=== PATIENT | female | born 1955 | race African-American/Black ===

== ENCOUNTER → 2019-04-25 | Day surgery (SDC) | payer OTHER ==
[~2019-04-25] MED LIST: IV RINGERS,LACTATED 1000ML 1,000 ML IV SCH; LIDOCAINE 2% PF 5 ML VIAL. ONE; PROPOFOL 40 ML IV ONE
[2019-04-25 12:08] VITALS: BP 136/71
--- NOTE | 2019-04-25 12:21 | PREOP HP ---
DATE OF SERVICE: 04/25/2019 REQUESTING PHYSICIAN: Carolyn Meek PRIMARY CARE PHYSICIAN: Carolyn Meek REASON FOR PROCEDURE: Colorectal cancer screening. HISTORY OF PRESENT ILLNESS: This is a 63-year-old female who presents for colorectal cancer screening. She has a family history of colon cancer in her daughter at age 32. She reports a daily bowel movement. She is scheduled for a hysterectomy due to uterine fibroids. PAST MEDICAL HISTORY: Uterine fibroids. FAMILY MEDICAL HISTORY: Significant for colon cancer in her daughter at age 32. SOCIAL HISTORY: No tobacco, alcohol or IV drug abuse. ALLERGIES: No known drug allergies. MEDICATIONS: None. REVIEW OF SYSTEMS: A 13-point review of systems was done and is positive as per HPI and otherwise negative. PHYSICAL EXAMINATION: VITAL SIGNS: She is afebrile and her vital signs are stable. GENERAL: She is a well-developed, well-nourished -[place] female, in no apparent distress. HEENT: Oropharynx is clear. CARDIOVASCULAR: S1, S2. LUNGS: Clear. ABDOMEN: Firm and distended. She reports this is secondary to uterine fibroids. She is nontender. EXTREMITIES: No edema. NEUROLOGIC: Awake, alert and oriented x3. ASSESSMENT AND PLAN: 1. Colorectal cancer screening. The risks and benefits including bleeding, perforation, non-diagnosis and sedation were explained and she has agreed to proceed. 2. Family history of colon cancer. Thank you for allowing me to participate in the care of this patient. CATRACHITA HAMILTON MD DR: VIRAL/blanca JOB#: [id number] / [id number]
--- NOTE | 2019-04-27 17:06 | PATHOLOGY ---
[facility] Accession Number: [id number] . 01 Material submitted: . PART A: colon - TRANSVERSE AND DESCENDING COLON POLYPS. Modifiers: transverse, descending PART B: colon - TRANSVERSE COLON POLYPS BIOPSY. Modifiers: transverse . 01 Clinical history: . Screening . 02 Diagnosis: A. Colon biopsies, transverse and descending colon polyps: - Tubular adenomas (3). . B. Colon biopsies, transverse colon polyps: - Tubular adenomas. . (JPM:lizandro; 04/27/2019) QMS 04/27/2019 0852 Local . 02 Comment: There is no high grade dysplasia or evidence of malignancy. . 02 Electronically signed: . Dakota Petty MD, Pathologist NPI- [id number] . 01 Gross description: . A. The specimen is received in formalin, labeled "Annelise Dekalb, transverse and descending colon polyps, hot snare polypectomy". Received are three segments of polypoid light brown soft tissue ranging in size from 0.9 x 0.8 x 0.5 to 1.2 x 0.9 x 0.8 cm in greatest dimensions. The surgical margins are inked. The smaller two segments are bisected and entirely submitted in cassette A1. The larger segment is trisected and entirely submitted in cassette A2. Due to the nature of the larger segment, fragmentation has occurred upon sectioning. . B. The specimen is received in formalin, labeled "Annelise Dekalb, transverse colon polyps biopsy". Received are multiple (greater than 10) segments of pale magallon soft tissue ranging in size from 0.2 to 0.4 cm in maximum dimensions. The specimen is submitted entirely in cassette B1. (CAA; 04/26/2019) QAC/QAC 04/26/2019 1139 Local . 02 Pathologist provided ICD-10: D12.3 . 02 CPT . 594311, [id number] Specimen Comment: A courtesy copy of this report has been sent to [phone], [phone] Specimen Comment: [id number] Specimen Comment: Report sent to / DR ORDONEZ Specimen Comment: A duplicate report has been generated due to demographic updates. Performed at: 01 [facility] [address] [facility] [address], [place] [id number] MD Behzad Cheema MD Phone: [phone] Performed at: 02 [facility] [address] [place], [place] [id number] MD Dakota Petty MD Phone: [phone]
== END ==
LOC: ENDOS 09:15
PROVIDERS: ATTEND Internal Medicine Gastroenterology
DX: Z12.11 Encounter for screening for malignant neoplasm of colon (principal); D12.3 Benign neoplasm of transverse colon; D12.4 Benign neoplasm of descending colon; K64.0 First degree hemorrhoids; D25.9 Leiomyoma of uterus, unspecified; Z80.0 Family history of malignant neoplasm of digestive organs
CPT/HCPCS: 45380; 45381; 45385; 88305; C1757; J2001; J2704; 45382